=== PATIENT | female | born 1940 | race Caucasian/White ===

== ENCOUNTER 2021-01-07 16:17 | Inpatient (IN) | payer OTHER ==
[~2021-01-07] VITALS: Ht 167.6 cm; Wt 56.3 kg
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
[2021-01-07 16:26] VITALS: BP 97/52
[2021-01-07 16:56] LABS: ABSOLUTE NEUTROPHILS 7.2 thou/uL (1.4-8.2); BASOPHILS 0.1 % (0.0-2.0); EOSINOPHILS 0.5 % (0.0-3.0); HEMATOCRIT 36.6 % (37.0-47.0); HEMOGLOBIN 12.2 gm/dL (12.0-15.0); LYMPHOCYTES 6.3 % (24.0-44.0); MCH 34.8 pg (26.0-34.0); MCHC 33.4 g/dL (28.0-37.0); MCV 104.4 fL (80.0-100.0); MONOCYTES 7.2 % (1.0-8.0); PLATELET COUNT 293 thou/uL (150-400); POLYS 85.9 % (36.0-66.0); RBC 3.51 mil/uL (4.20-5.00); RDW 13.9 % (10.5-14.5); WBC 8.4 thou/uL (4.0-11.0)
[2021-01-07 17:52] LABS: CALCIUM 9.1 mg/dL (8.5-10.1); CREATININE 1.2 mg/dL (0.6-1.0); POTASSIUM 4.5 mmol/L (3.5-5.1)
[2021-01-07 17:59] LABS: ALBUMIN 2.6 g/dL (3.4-5.0); TOTAL BILIRUBIN 0.3 mg/dL (0.2-1.0); TOTAL PROTEIN 6.7 g/dL (6.4-8.2)
[2021-01-07 19:18] LABS: URINE BILIRUBIN NEGATIVE (Negative); URINE BLOOD NEGATIVE (Negative); URINE CLARITY CLEAR; URINE COLOR YELLOW; URINE GLUCOSE-RANDOM* NEGATIVE (Negative); URINE KETONES NEGATIVE (Negative); URINE LEUKOCYTES-REFLEX TRACE (Negative); URINE NITRITE-REFLEX NEGATIVE (Negative); URINE PROTEIN (DIPSTICK) NEGATIVE (Negative); URINE UROBILINOGEN 0.2 E.U./dl (0.2-1.0)
[2021-01-07 21:07] VITALS: BP 109/62
[2021-01-07 21:15] VITALS: BP 110/58
[2021-01-07 21:53] VITALS: BP 109/68
[2021-01-07] MEDS ORDERED: TRAMADOL 50 MG50 MG PO (23:49)
[2021-01-07] MEDS ORDERED: CELEXA 10 MG TA10 M1 PO (23:49)
[2021-01-07] MEDS ORDERED: LISINOPRIL2.5 MG PO (23:50)
[2021-01-07] MEDS ORDERED: PREDNISONE 10 M10 MG PO (23:50)
[2021-01-07] MEDS ORDERED: LASIX 20 MG TAB20 MG PO (23:51)
[2021-01-07] MEDS ORDERED: TYLENOL EXTRA500 MG PO (23:54)
[2021-01-07] MEDS ORDERED: ALBUTEROL2.5 MG/31 INH (23:56)
[2021-01-07] MEDS ORDERED: PROAIR HFA8.5 GM INH (23:58)
[2021-01-07] MEDS ORDERED: CARAFATE1 GM PO (23:59)
[2021-01-08] MEDS ORDERED: LACTOBACILLUS1 EAC2 PO (00:01)
[2021-01-08] MEDS ORDERED: ACIDOPHILUS1 EAC2 PO (00:02)
[2021-01-08] MEDS ORDERED: LIPITOR 20 MG T20 M1 PO (00:03)
[2021-01-08] MEDS ORDERED: KLOR-CON M2020 MEQ PO (00:06)
[2021-01-08] MEDS ORDERED: DICLOFENAC SOD100 G1 TOP (00:08)
[2021-01-08] MEDS ORDERED: VITAMIN D325 MC4 PO (00:09)
[2021-01-08] MEDS ORDERED: D-RIBOSE1 GM PO (00:10)
--- NOTE | 2021-01-08 01:53 | NUR ---
Pt admitted from ED at 2144 with hypotension/diarrhea, A/OX4,VSS. Denies pain on assessment. Up with AX1 GB/BSC,having diarrhea. redness on tailbone, moisture barrier applied and pt encouraged to reposition frequently. Edema to BLE 2-3+, warm, tender to touch and red in color;reports in gets worse at night when she lays down and has been having wraps done twice a week. Uses a scooter to propel self around,otherwise nonambulatory. Fall education provided, and pt agrees to call for help. Med rec done. in to see pt. Fall precauitons in place,resting quietly w/o any distress noted. On special contact isolation.
--- NOTE | 2021-01-08 07:14 | EKG ---
[address] [address] ELECTROCARDIOGRAM REPORT Name: SARA MARCHINE Room #: 459-P ADM IN M.R.#: [id number] Admission: 01/07/21 Attend Phys: Latonya Duque MD Discharge: Date of : 38 Report #: [id number] [facility] ED Test Date: 2021-01-07 Test Time: 16:53:11 Pat Name: TRISH MARCH Department: Room: 45 Gender: F Primary Care Provider: thaddeus : 1940 Requested By: Greg Benitez Order Number: [id number] MD: Hermelindo Wells Measurements Intervals [place] Rate: 105 P: 56 NE: 147 QRS: -74 QRSD: 98 T: 47 QT: 365 QTc: 483 Interpretive Statements Sinus tachycardia Inferior infarct, old Probable anterolateral infarct, old No previous ECG available for comparison Electronically Signed On 01-08-2021 7:13:56 CDT by Hermelindo Wells [email or web address] <ELECTRONICALLY SIGNED> By: Hermelindo Wells MD, [facility] 01/08/21 0713 1653 1653 Hermelindo Wells MD, FACC /EPI
[2021-01-08] MEDS ORDERED: PROVIGIL 200 M200 MG PO (07:40)
[2021-01-08 08:00] VITALS: BP 134/67
--- NOTE | 2021-01-08 11:55 | NUR ---
PT ADMITTED RELATED TO HYPOTENSION AND DIARRHEA. CM REVIEWED CHART AND SPOKE SPOKE WITH CARE TEAM. CM MET WITH PT AT BEDSIDE THIS DAY. PT APPEARED TO BE A&O X4. CM ROLE INTRODUCED. PT INDICATED [facility] [address] PT INDICATED SHE USES A POWER WHEELCHAIR TO ASSIST WITH MOBILITY FORGING PRESS SETTER UP. PT INDICATED SHE WAS TO BE STARTING WITH [facility] ON WEDNESDAY BUT NONE CAME. PT GOES FOR IMMUNOGLOBULIN INFUSIONS AT [facility] FORGING PRESS SETTER UP. PT HAD BEEN AT INFUSION FORGING PRESS SETTER UP AND HER POWER CHIAR IS THERE. PT INDICATED THAT SHE HAD PL SERVICES THREE TIMES A WEEK TO ASSIST WITH ADLS AND HOUSE KEEPING. PT INDICATED HER HOPE IS TO BE ABLE TO RETURN HOME ONCE MEDICALLY STABLE BUT THAT SHE HAS BEEN TO [facility] IN THE PAST AND WOULD BE RECEPTIVE TO RETURNING THERE IF SKILLED IS NEEDED UPON DC. CM FOLLOWING REGARDING DC PLANNING.
[2021-01-08 16:00] VITALS: BP 124/71
[2021-01-08 19:47] VITALS: BP 127/70
[2021-01-09 07:51] LABS: CALCIUM 8.5 mg/dL (8.5-10.1); CREATININE 0.8 mg/dL (0.6-1.0); POTASSIUM 3.4 mmol/L (3.5-5.1)
[2021-01-09 07:53] LABS: HEMATOCRIT 31.1 % (37.0-47.0); HEMOGLOBIN 10.5 gm/dL (12.0-15.0); MCH 34.8 pg (26.0-34.0); MCHC 33.6 g/dL (28.0-37.0); MCV 103.5 fL (80.0-100.0); RBC 3.01 mil/uL (4.20-5.00); RDW 13.4 % (10.5-14.5); WBC 5.1 thou/uL (4.0-11.0)
--- NOTE | 2021-01-09 13:35 | HC ---
[facility] [place] [address] CONSULTATION Name: TRISH MARCH Room #: 459-P ADM IN M.R.#: [id number] Admission: 01/07/21 Attend Phys: Altaf Lopez MD Discharge: Date of : 38 Report #: [id number] THIS REPORT FOR: cc: FAM - Family physician unknown FAM - Family physician unknown Idris Díaz MD ~ DOC #: [id number] Idris Díaz MD DATE OF SERVICE: 01/08/2021 INFECTIOUS DISEASE CONSULTATION ATTENDING PHYSICIAN: Dr. Lopez. REASON FOR EVALUATION: Suspected C. difficile colitis. Also, inflammatory eruption involving bilateral lower extremities, component of skin and soft tissue infection with cellulitis. HISTORY OF PRESENT ILLNESS: Chart reviewed and the patient was examined. This is an 80-year-old with extensive medical history, normally receives IVIG for immunodeficiency, who apparently was receiving infusion, when developed illness became hypotensive, lightheaded and actually apparently had a syncopal episode. Subsequent to that developed explosive diarrhea, it is notable has history of C. difficile, she is suspected to such, testing is pending. She notes limited mobility. Does have lower extremity edema on a chronic basis, felt to have increased erythema as well. Laboratory evaluation was not significantly remarkable. Urinalysis unremarkable. Venous Dopplers of the lower extremity showed no evidence of DVT. ALLERGIES: LISTED TO PROPOXYPHENE, METHOTREXATE, GABAPENTIN, HYDROXYCHLOROQUINE, DULOXETINE, PREGABALIN. CURRENT MEDICATIONS: Include enoxaparin, atorvastatin, furosemide, prednisone 10 daily, lisinopril, citalopram, sucralfate, vancomycin, both parenteral and enteral ceftriaxone, diclofenac, albuterol, tramadol. 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 diff colitis, history of gastrointestinal hemorrhage, Morgellons syndrome, history of depression. SOCIAL HISTORY: Occasional ethanol, no illicit drug use. No tobacco. FAMILY HISTORY: Noncontributory. [facility] [address] [place] [address] CONSULTATION Name: TRISH MARCH Room #: 459-P [facility] IN M.R.#: [id number] Admission: 01/07/21 Attend Phys: Altaf Lopez MD Discharge: Date of : 38 Report #: [id number] REVIEW OF SYSTEMS: Otherwise, unremarkable 10-point review of systems. PHYSICAL EXAMINATION: GENERAL: She appears chronically ill and undernourished. She is mildly encephalopathic, mild to moderate distress. VITAL SIGNS: Temperature 99.1, pulse 104, respirations 19, blood pressure 134/67. SKIN: Warm, dry. HEENT: Otherwise, unremarkable. NECK: Supple. LUNGS: Diminished breath sounds. HEART: Regular. I do not appreciate a murmur. ABDOMEN: Soft. No apparent peritoneal signs. GENITOURINARY AND RECTAL: Deferred. LABORATORY DATA: Venous Doppler of the lower extremity showed no evidence of DVT. Urinalysis unremarkable. Electrolytes: Sodium 138, potassium 4.5, chloride 104, bicarbonate is 29, anion gap of 5, BUN and creatinine 30 and 1.2, glucose of 117. LFTs are abnormal. Albumin of 26, total protein 6.7. CBC: White count of 8.4, H and H 12.2 and 36.6, platelets of 293. ASSESSMENT AND PLAN: 1. illness with history of C. difficile colitis. We will continue empiric therapy with oral vancomycin. Stools have slowed down to this point, await results. 2. Bilateral lower extremity inflammatory eruption, in setting of underlying venous stasis insufficiency, may have a degree of lymphedema as well. Continue empiric therapy. Presumed staph or strep etiology. At this point, has no wounds, no bullous lesions. Continue elevation and had been instructed to utilize some compression. We will check arterial Dopplers as well. She remains tenuous, has extensive medical history. Continue to monitor expectantly at risk for nosocomial related infectious complications. MD JOSE Dennis/MATTY/MARGARITO <ELECTRONICALLY SIGNED> By: Idris Díaz MD 01/09/21 1335 1319 0027 Idris Díaz MD /nt
--- NOTE | 2021-01-09 14:02 | NUR ---
PT AND OT INDICATED THAT PT WOULD BE SAFE TO RETURN TO HER INDEPEDNENT LIVING APARTMENT WITH HOME HEALTH SERVICES. PT HAS A POWER WC FOR HOME USE. PT HAD BEEN TO START SERVICES WITH [facility]. CM NOTIFIED THEM OF PT'S ADMISSION. PT AGREEABLE WITH [facility] AND HER PERSONALIZED LIVING SERVICES ONCE MEDICALLY STABLE. [facility]: P: F:
[2021-01-09 20:22] VITALS: BP 169/98
--- NOTE | 2021-01-10 03:34 | NUR ---
ASSUMED CARE OF PT AT SHIFT CHANGE. PT IS AOX3-4 AND LETS NEEDS BE KNOWN. FALL PRECAUTION IN PLACE. DENIED PAIN, NAUSEA OR SOA. ASSESSMENT CHARTED. IVF CONTINUED. ABX TREATMENT CONTINUED. PT WAS ABLE TO GET COMFORTABLE AND SLEEP PART OF THE SHIFT. VSS AND NO S/S OF ACUTE DISTRESS. WILL CONTINUE TO MONITOR FOR CHANGES.
[2021-01-10 04:22] VITALS: BP 157/87
[2021-01-10 07:21] VITALS: BP 145/80
--- NOTE | 2021-01-10 14:38 | NUR ---
Discussed during los, will need to be having less loose stool to dc. Possible dc over the weekend. Will dc back to [place] [facility] [address] [place], with [facility]. Cont. with her PD 3x week to assist with some ADL's and house keep up. At Dc fax dc orders to [facility] , fax # [phone], phone # [phone].
[2021-01-10 15:45] VITALS: BP 148/85
[2021-01-10 19:19] VITALS: BP 122/65
--- NOTE | 2021-01-10 19:38 | NUR ---
Assumed pt care this am, vs stable. Diet and medications are tolerated well. Tubi insurance claim auditor placed on BLE. Culture from the left eye sent down to lab as per ID orders. No diarrhea has been noted for this shift. Diet and medications are tolerated well. POC followed with no signs or verbalizations of distress. Pain is managed with medications. Endorsed to the night nurse.
--- NOTE | 2021-01-11 01:44 | NUR ---
ASSUMED CARE OF PT AT SHIFT CHANGE. PT IS AOX4 AND LETS NEEDS BE KNOWN. FALL PRECAUTION IN PLACE. PT DENIED PAIN, NAUSEA OR SOA. ASSESSMENT CHARTED. PT HAD 1X LOOSE BM THIS SHIFT. IVF AND ABX TREATMENT CONTINUED. PT WAS ABLE TO GET COMFORTABLE AND SLEEP PART OF THE SHIFT. VSS AND NO S/S OF ACUTE DISTRESS. WILL CONTINUE TO MONITOR.
[2021-01-11 04:58] LABS: ABSOLUTE NEUTROPHILS 3.4 thou/uL (1.4-8.2); BASOPHILS 0.8 % (0.0-2.0); EOSINOPHILS 3.5 % (0.0-3.0); HEMATOCRIT 29.5 % (37.0-47.0); HEMOGLOBIN 9.9 gm/dL (12.0-15.0); LYMPHOCYTES 19.9 % (24.0-44.0); MCH 34.9 pg (26.0-34.0); MCHC 33.4 g/dL (28.0-37.0); MCV 104.3 fL (80.0-100.0); MONOCYTES 12.4 % (1.0-8.0); PLATELET COUNT 228 thou/uL (150-400); POLYS 63.4 % (36.0-66.0); RBC 2.83 mil/uL (4.20-5.00); RDW 13.3 % (10.5-14.5); WBC 5.4 thou/uL (4.0-11.0)
[2021-01-11 05:21] LABS: CALCIUM 8.5 mg/dL (8.5-10.1); CREATININE 0.7 mg/dL (0.6-1.0); MAGNESIUM 1.5 mg/dL (1.8-2.4); PHOSPHORUS 3.2 mg/dL (2.5-4.9); POTASSIUM 3.5 mmol/L (3.5-5.1)
[2021-01-11 07:40] VITALS: BP 155/86
[2021-01-11 16:00] VITALS: BP 128/80
--- NOTE | 2021-01-11 18:41 | NUR ---
Assumed pt care this am, vs stable. Legs lightly wrapped with elastic bandages as per request of the pt. Pt claims to have insects coming out of her skin and this has been going on for years, not witnessed by this nurse. Left a sample cup when this occurs again. Stool sample sent down to the lab. POC followed with no signs or verbalizations of distress noted. Endorsed to the daycare director.
[2021-01-11 19:22] VITALS: BP 110/66
[2021-01-11 19:30] VITALS: BP 144/83
[2021-01-12 03:45] VITALS: BP 131/72
[2021-01-12 04:35] LABS: ABSOLUTE NEUTROPHILS 3.5 thou/uL (1.4-8.2); BASOPHILS 0.8 % (0.0-2.0); EOSINOPHILS 3.6 % (0.0-3.0); HEMATOCRIT 31.5 % (37.0-47.0); HEMOGLOBIN 10.3 gm/dL (12.0-15.0); LYMPHOCYTES 23.1 % (24.0-44.0); MCH 33.9 pg (26.0-34.0); MCHC 32.7 g/dL (28.0-37.0); MCV 103.8 fL (80.0-100.0); MONOCYTES 12.7 % (1.0-8.0); PLATELET COUNT 247 thou/uL (150-400); POLYS 59.8 % (36.0-66.0); RBC 3.04 mil/uL (4.20-5.00); RDW 13.6 % (10.5-14.5); WBC 5.9 thou/uL (4.0-11.0)
[2021-01-12 04:57] LABS: CALCIUM 8.8 mg/dL (8.5-10.1); CREATININE 0.7 mg/dL (0.6-1.0); MAGNESIUM 1.7 mg/dL (1.8-2.4); PHOSPHORUS 3.8 mg/dL (2.5-4.9); POTASSIUM 3.7 mmol/L (3.5-5.1)
--- NOTE | 2021-01-12 05:18 | NUR ---
ASUMED CARE OF PT AT SHIFT CHANGE. PT IS AOX3-4 AND LETS NEEDS BE KNOWN. ASSESSMENT CHARTED. PT DENIED PAIN, NAUSEA OR SOA. PT HAD 4X LOOSE BM THIS SHIFT. BM IS BECOMING MORE FORMED. IVF CONTINUED. PT WAS ABLE TO GET COMFORTABLE AND SLEEP PART OF THE SHIFT. VSS AND NO S/S OF ACUTE DISTRESS. WILL CONTINUE TO MONITOR FOR CHANGES.
[2021-01-12 07:40] VITALS: BP 150/85
[2021-01-12 16:15] VITALS: BP 149/84
[2021-01-12 19:21] VITALS: BP 139/79
--- NOTE | 2021-01-12 19:41 | NUR ---
Assumed pt care this am, VS stable. Had several bm, almost formed. Diet and medicatiosn are tolerated well. Refuses tubi wildfire prevention specialist, ankles and feet are swollen, swarrped with elastic bandages. Still feels insects are coming out of her skin. POC followed, endorsed to the night nurse.
--- NOTE | 2021-01-13 05:09 | NUR ---
Pt. rested quietly at intervals during the night when checked on during frequent rounds. Her iv clotted off and attempted to resart iv without any success one time. Pt. would not allow anyone to restart her iv. She wants iv team to do it since she is a hard stick. Po pain meds given for c/o pain (see emar) with some relief noted. Up to the bedside comode several times. She did have several small loose stools.
[2021-01-13 07:33] LABS: ABSOLUTE NEUTROPHILS 3.3 thou/uL (1.4-8.2); BASOPHILS 0.9 % (0.0-2.0); EOSINOPHILS 4.5 % (0.0-3.0); HEMATOCRIT 31.2 % (37.0-47.0); HEMOGLOBIN 10.1 gm/dL (12.0-15.0); LYMPHOCYTES 21.9 % (24.0-44.0); MCH 33.7 pg (26.0-34.0); MCHC 32.4 g/dL (28.0-37.0); MCV 104.2 fL (80.0-100.0); MONOCYTES 13.5 % (1.0-8.0); PLATELET COUNT 261 thou/uL (150-400); POLYS 59.2 % (36.0-66.0); RDW 13.6 % (10.5-14.5); WBC 5.6 thou/uL (4.0-11.0)
[2021-01-13 07:41] VITALS: BP 153/78
[2021-01-13 07:42] LABS: ALBUMIN 2.3 g/dL (3.4-5.0); CALCIUM 8.8 mg/dL (8.5-10.1); CREATININE 0.7 mg/dL (0.6-1.0); MAGNESIUM 1.8 mg/dL (1.8-2.4); PHOSPHORUS 3.8 mg/dL (2.5-4.9); POTASSIUM 3.8 mmol/L (3.5-5.1); TOTAL BILIRUBIN 0.2 mg/dL (0.2-1.0); TOTAL PROTEIN 6.3 g/dL (6.4-8.2)
--- NOTE | 2021-01-13 12:18 | NUR ---
ID CHANGED PT TO MINOCYCLINE. CARE TEAM INDICATED THAT PT MAY BE MEDICALLY STABLE TO DC BACK TO [facility] [address] [place] TOMORROW WITH [facility]. CM FOLLOWING REGARDING DC PLANNING.
[2021-01-13 14:49] VITALS: BP 149/68
--- NOTE | 2021-01-13 16:56 | NUR ---
Assessed pt at 7:00 AM pt had no IV axcess. Called IV team to restart IV. IV restarted in left forearm. Pt is A XOX4 . Pt is up with assist x1 to bedside commode continent of bowel and bladder. Had small soft BM today. Bilateral lung are clear and bilateral lower extremities are +2 edematous and reddened. Pt had pain requested tramadol which help with relief. She likes to take her pills whole with applesauce. Had xray of chest and abdomen today. Pt fells she will discharge tomorrow to [place] in [place]. Fall precautions in effect. Call light within reach will continue to monitor til end of shift.
[2021-01-13 20:20] VITALS: BP 135/59
--- NOTE | 2021-01-14 03:20 | NUR ---
PT CARE ASSUMED WITH PT IN BED WATCHING TV.PT IS A/O X4.PT IS UP WITH X1 ASSIST TO BSC.PT C/O PAIN AND PAIN MANAGED WITH TYLENOL AND TRAMADOL.PT HAS BLE EDEMA AND PAIN IN NECK AND BLE.IV ON LT FA WITH NS AT 126CC/HR.PT APPEAR TO BE IN NO ACUTE DISTRESS.WILL CONTINUE TO MONITOR
[2021-01-14 05:44] LABS: HEMATOCRIT 29.7 % (37.0-47.0); HEMOGLOBIN 9.8 gm/dL (12.0-15.0); MCH 34.2 pg (26.0-34.0); MCHC 33.1 g/dL (28.0-37.0); MCV 103.5 fL (80.0-100.0); RBC 2.87 mil/uL (4.20-5.00); RDW 13.2 % (10.5-14.5); WBC 6.4 thou/uL (4.0-11.0)
[2021-01-14 05:59] LABS: CALCIUM 8.6 mg/dL (8.5-10.1); CREATININE 0.8 mg/dL (0.6-1.0); POTASSIUM 3.8 mmol/L (3.5-5.1)
[2021-01-14 07:41] VITALS: BP 148/73
[2021-01-14 09:30] VITALS: BP 148/73
--- NOTE | 2021-01-14 12:48 | NUR ---
ASSUMED PT CARE THIS AM. PT A&OX4, ABLE TO MAKE ALL NEEDS KNOWN. PATIENT HAS REDNESS TO BILATERAL LOWER EXTREMETIES WITH DEFORMITIES NOTED ON HER FEET. PATIENT COMPLAINED OF GENERALIZED FABRICIO, RESPONDED WELL TO PAIN MEDS GIVEN PER EMAR. IV PATENT, FLUIDS INFUSING. PATIENT TOOK ALL MEDICATIONS WELL. PATIENT REMAINS ON ROOM AND AND REMAINS CONTINENT. FALL PRECAUTIONS ARE IN PLACE AND CALL LIGHT WITHIN REACH.
[2021-01-14] MEDS ORDERED: MINOCYCLINE 5050 M1 PO (15:05)
[2021-01-14] MEDS ORDERED: PROAIR HFA8.5 GM INH (15:06)
[2021-01-14] MEDS ORDERED: CHOLESTYRAMINE L4 GM PO (15:08)
--- NOTE | 2021-01-14 16:00 | NUR ---
CARE TEAM INDICATED THAT PT IS MEDICALLY STABLE TO DC HOME THIS DAY. PT IS TO DC HOME TO [facility] [address] [place] THIS DAY. CM FAXED ORDERS TO [facility]. PT'S DTR IS TO PROVIDE TRANSPORT HOME THIS DAY AROUND 1800. NO OTHER CM INTERVENTION INDICATED. CASE CLOSED.
[2021-01-14 16:29] VITALS: BP 141/77
[2021-01-14] MEDS ORDERED: ALBUTEROL2.5 MG/0.5 INH (17:26)
--- NOTE | 2021-01-15 09:17 | NUR ---
BPCI letter and preferred provider list provided to patient, lives at [facility]
== END 2021-01-14 20:00 | disposition home health service (06) | DRG 602 ==
LOC: ER 16:17 → EROBS 21:05 → 4W 21:05
PROVIDERS: Emergency Medicine; Hospitalist; Internal Medicine; ADMIT Internal Medicine; ATTEND Internal Medicine
DX: L03.115 Cellulitis of right lower limb (principal); E43 Unspecified severe protein-calorie malnutrition; N17.0 Acute kidney failure with tubular necrosis; L03.116 Cellulitis of left lower limb; E78.00 Pure hypercholesterolemia, unspecified; G62.9 Polyneuropathy, unspecified; G89.29 Other chronic pain; J44.9 Chronic obstructive pulmonary disease, unspecified; I10 Essential (primary) hypertension; F32.9 Major depressive disorder, single episode, unspecified; E83.51 Hypocalcemia; M48.00 Spinal stenosis, site unspecified; E53.8 Deficiency of other specified B group vitamins; L30.9 Dermatitis, unspecified; D64.9 Anemia, unspecified; E83.42 Hypomagnesemia; I87.8 Other specified disorders of veins; R53.81 Other malaise; Z68.20 Body mass index [BMI] 20.0-20.9, adult; Z79.899 Other long term (current) drug therapy; Z88.8 Allergy status to other drugs, medicaments and biological substances
CPT/HCPCS: 10040